=== PATIENT | male | born 1990 | race Caucasian/White ===

== ENCOUNTER 2017-06-10 20:48 | Emergency (ER) | payer SELFPAY ==
[~2017-06-10] VITALS: Ht 170.2 cm; Wt 77.1 kg
[2017-06-10 21:04] VITALS: Ht 170.2 cm; Wt 77.1 kg
[2017-06-11] VITALS: BP 117/75
== END 2017-06-11 | disposition home or self-care (01) ==
LOC: ED 20:48
DX: R07.89 Other chest pain (principal); M54.2 Cervicalgia; M54.9 Dorsalgia, unspecified; M25.512 Pain in left shoulder
CPT/HCPCS: J1885; Q0092